=== PATIENT | female | born 1940 | race Caucasian/White ===

== ENCOUNTER 2020-05-06 17:03 | Emergency (ER) | payer MEDICARE, OTHER ==
[~2020-05-06] VITALS: Ht 162.6 cm; Wt 57.0 kg
[2020-05-06 17:04] VITALS: BP 153/78
--- NOTE | 2020-05-06 17:31 | NUR ---
Pt steady on her feet to change into gown. Pt denies LOC, or feeling faint/ dizzy prior to her fall. She states she was in her yard moving rocks when she tripped and hit her head on a rock. She denies any medical hx and does not take a blood thinner. Pt denies wanting pain meds at this time. Daughter at bedside, call light in reach, bedrails upx2.
--- NOTE | 2020-05-06 18:04 | NUR ---
Pt to and from imaging.
[2020-05-06] MEDS ORDERED: NEOSPORIN OINT. PKT 1 PACKET ONE (18:45)
--- NOTE | 2020-05-06 18:51 | NUR ---
Head lac started bleeding minimally, dressed for d/c.
== END 2020-05-06 18:52 | disposition home or self-care (01) ==
LOC: ED 18:03
DX: S06.0X0A Concussion without loss of consciousness, initial encounter (principal); R51.9 Headache, unspecified; W01.0XXA Fall on same level from slipping, tripping and stumbling without subsequent striking against object, initial encounter; Y93.89 Activity, other specified; Y92.009 Unspecified place in unspecified non-institutional (private) residence as the place of occurrence of the external cause; Y99.8 Other external cause status
CPT/HCPCS: 70450; 72125; 99285